=== PATIENT | female | born 1980 | race Caucasian/White ===

== ENCOUNTER → 2017-02-16 | Outpatient (CLI) | payer BC ==
[~2017-02-16] MED LIST: APNO TOP; MOTRIN800 MG PO; PERCOCET 5-3251 EACH PO; PRENATAL 1+1)(P1 TAB PO; TUMS200 MG PO
== END | disposition disaster alternative care site (69) ==
LOC: GLAB 07:55
DX: Z36 Encounter for antenatal screening of mother (principal)

== ENCOUNTER 2017-04-30 07:13 | Outpatient (CLI) | payer BC ==
[~2017-04-30] VITALS: Ht 160 cm; Wt 101.4 kg
[~2017-04-30 07:13] MED LIST changes: -APNO TOP; -MOTRIN800 MG PO; -PERCOCET 5-3251 EACH PO
[2017-04-30 07:57] LABS: BASOPHIL # 0.1 K/uL (0.0-0.2); BASOPHIL % 0.5 %; EOSINOPHIL # 0.2 K/uL (0.0-0.5); EOSINOPHIL % 1.7 %; HEMATOCRIT 35.5 % (33.0-46.0); HEMOGLOBIN 12.1 g/dL (11.0-15.0); IMMATURE GRANULOCYTE # 0.1 K/uL (0.0-0.3); IMMATURE GRANULOCYTE % 1.2 %; LYMPHOCYTE # 3.2 K/uL (0.8-4.0); LYMPHOCYTE % 30.8 %; MCH 30.7 pg (27.0-34.0); MCHC 34.1 gm/dL (32.0-36.5); MCV 90.1 fl (83.0-98.0); MONOCYTE # 1.1 K/uL (0.0-1.0); MONOCYTE % 10.6 %; MPV 10.3 fl (9.4-12.4); NEUTROPHIL # (ANC) 5.8 K/uL (1.8-7.8); NEUTROPHIL % 55.2 %; NRBC % 0 /100WBC (0-0.00); PLATELET COUNT 323 K/uL (150-450); RBC 3.94 M/uL (3.50-5.50); RDW-CV 12.7 % (11.9-14.6); WBC 10.5 K/uL (4.0-11.0)
--- NOTE | 2017-04-30 17:15 | NUR ---
Last VS: T:98.4 P:100 R: 18 BP: 120/70 Pain ratin. Last pain med: None given Medicated at: Effective: FHT: 125 Dilatation: 3 Effacement %: 80 Station: -2/BOLLATABLE Significant event: .PGE2 GEL X1, PITOCIN STARTED AT 1215. RUNNING AT 19MU/MIN. PT HAS USED BIRTHING BALL AND PEANUT BALL. INITIAL VE 2/80/-2 ANTERIOR
== END 2017-04-30 20:15 | disposition disaster alternative care site (69) ==
LOC: GOBM 07:13 → GOBS 07:13 → GOBM 20:15
PROVIDERS: Obstetrics & Gynecology
DX: O09.523 Supervision of elderly multigravida, third trimester (principal); Z3A.39 39 weeks gestation of pregnancy; O26.23 Pregnancy care for patient with recurrent pregnancy loss, third trimester
CPT/HCPCS: G0463; J2001; J2590; J7120

== ENCOUNTER 2017-05-03 07:46 | Inpatient (IN) | payer BC ==
[~2017-05-03] VITALS: Ht 160 cm; Wt 101.8 kg
--- NOTE | ~2017-05-03 | DS ---
PATIENT'S NAME: ARYAN VERDIN [facility] AGE: 36 Y [address] ROOM: [address] [address] LOCATION: [facility] ADMIT DATE: 05/03/2017 Discharge Summary DISCHARGE DATE: 05/05/2017 FAMILY PHYSICIAN: PHYSICIAN, NO ATTENDING PHYSICIAN: Alli Gamble FINAL DIAGNOSES: 1. Term intrauterine /delivered. 2. Advanced maternal age. 3. Failed induction x2. PROCEDURES PERFORMED: On 05/03/2017, induction of labor, low transverse section. LABORATORY STUDIES: The patient's discharge hemoglobin and hematocrit were 10.3 and 30.3 respectively. White blood cell count was 12.2. umbilical, arterial cord blood gases revealed a pH of 7.29 and a base deficit of 3. HOSPITAL COURSE: The patient was admitted to [facility] on 05/03/2017. She would undergo a trial of labor and fail to progress beyond 3 cm dilation. As such, she desired to abandon the trial of labor and proceed to a section. She was taken to the operating room. She would deliver a viable 8 pounds 7 ounce female under epidural anesthesia. She had an unremarkable postoperative course. Pain was initially managed with Toradol and Percocet, later changed over to oral pain medications consisting of Motrin and Percocet. Underwood was discontinued on postoperative day #1 without incident and initially kept n.p.o., quickly advanced to clear liquid on a regular diet on 05/05/2017 (postoperative day #2). The patient is having normal urine and bowel function and will allow good pain control and subsequently discharged in good condition. DISCHARGE MEDICATIONS: She is to resume her outpatient medications. In addition, she was given a prescription for Motrin and Percocet. DISCHARGE INSTRUCTIONS: She is to return to see Dr. Gamble in 2 weeks. Otherwise, discharge instructions were reviewed. MD SALOME ESPINOZA/alfred [facility] 36 [facility] [address] ROOM: [address] [address] LOCATION: [facility] ADMIT DATE: 05/03/2017 Discharge Summary DISCHARGE DATE: 05/05/2017 FAMILY PHYSICIAN: BIA YOUNG ATTENDING PHYSICIAN: Alli Gamble /[id number] d: 05/25/17 1033 t: 05/27/17 1049, DISCHARGE SUMMARY
--- NOTE | ~2017-05-03 | HP ---
[facility] AGE[facility] 36 Y [address] ROOM: [place] [address] LOCATION: [facility] ADMIT DATE: 05/03/2017 History & Physical DISCHARGE DATE: FAMILY PHYSICIAN: BIA YOUNG ATTENDING PHYSICIAN: Alli Gamble DATE OF SERVICE: 05/03/2017 HISTORY OF PRESENT ILLNESS: Karen Singh is a 36-year-old white female, 7, para 2, at term. She was induced for advanced maternal age. She has now failed her second induction. She does not desire to proceed with a third induction. She wishes to proceed to a delivery. PAST MEDICAL HISTORY: Please see record. FAMILY HISTORY: Please see record. SOCIAL HISTORY: Please see record. PHYSICAL EXAMINATION: GENERAL: Well-developed, well-nourished white female, appears her stated age. HEENT: Grossly normal. LUNGS: Normal. HEART: Normal. IMPRESSION: A 36-year-old female with advanced maternal age, failed her second induction, desires to proceed to a delivery. PLAN: Proceed to primary low-transverse section. The patient understands the indications, procedures, risks, and alternatives. Also understands the risks to include bleeding that may require transfusions, infections that may require IV antibiotics, prolonged hospitalization, possible damage to the internal organs that may require additional surgical correction, and the risks of anesthesia. All questions were answered to the patient's satisfaction and informed consent was obtained. PATIENT'S NAME: URIEL SINGHELIA [facility] AGE: 36 Y [address] ROOM: [place] [address] LOCATION: [facility] ADMIT DATE: 05/03/2017 History & Physical DISCHARGE DATE: FAMILY PHYSICIAN: BIA YOUNG ATTENDING PHYSICIAN: Alli Gamble MD DHW/alfred /[id number] D: [id number] T: [id number] HISTORY & PHYSICAL
--- NOTE | ~2017-05-03 | OR ---
PATIENT'S NAME: KAREN SINGH [facility] AGE: 36 Y [address] ROOM: [address] [address] LOCATION: [facility] ADMIT DATE: 05/03/2017 OR/Procedure Report DISCHARGE DATE: FAMILY PHYSICIAN: PHYSICIAN, NO ATTENDING PHYSICIAN: Arnie Gamble SURGEON: Arnie Gamble MD WHITE METAL CORROSION PROOFER: Flaca Maldonado Dr.'s assistance was required due to the complexity of the case as well as in compliance with [facility] guidelines. DATE OF PROCEDURE: 05/03/2017 PREOPERATIVE DIAGNOSES: Term intrauterine , advanced maternal age, failed induction x2. POSTOPERATIVE DIAGNOSES: Term intrauterine , advanced maternal age, failed induction x2. PROCEDURE: Primary low-transverse section. ANESTHESIA: Epidural. ESTIMATED BLOOD LOSS: 500 mL. CLINICAL INDICATION: Karen Singh is a 36-year-old female, who underwent an induction of labor #2 secondary to advanced maternal age. She was failed to be induced. She desired to be delivered via section. FINDINGS: Delivery of viable 8 pounds and 7 ounces female infant, score 8 at 1 minute and 9 at 5 minutes. umbilical arterial cord blood gas is pending at the time of dictation. TECHNICAL PROCEDURE: The patient was taken to the operating room, labor epidural was sufficient for a delivery, placed in a supine position with a right hip roll, prepped and draped in the usual fashion. Pfannenstiel skin incision was made with a scalpel. Subcutaneous tissue was dissected sharply and fascial incision was performed sharply. Linea alba dissected free of rectus muscles using a combination of sharp and blunt dissection. Rectus muscle and peritoneum were incised sharply in the midline. Bladder flap created. Myometrium incised with a scalpel. Endometrial cavity was entered bluntly. At this point in time, there was a rapid and easy delivery of a viable 8 pounds and 7 ounces female in a vertex presentation. The umbilical cord was doubly clamped, the intervening segment was cut, infant handed off to the [facility]. umbilical arterial cord blood and venous cord blood were obtained for blood gas analysis and routine [facility] AGE[facility] 36 Y [address] ROOM: [address] [address] LOCATION: [facility] ADMIT DATE: 05/03/2017 OR/Procedure Report DISCHARGE DATE: FAMILY PHYSICIAN: PHYSICIAN, NO ATTENDING PHYSICIAN: Arnie Gmable respectively. Placenta delivered spontaneously intact with 3 vessels. Exploration of the uterine cavity noted no residual, placental, or amniotic membranes. Uterine incision was closed with a running continually locking stitch of 0 chromic suture followed by a second imbricating layer consisting of running continuous stitch of 0 chromic suture. Good hemostasis was obtained. Bladder flap was closed with running continuous stitch of 2-0 Vicryl suture. Abdomen was inspected. Any blood or blood clots were retrieved. Tubes and ovaries were normal bilaterally. Abdominal peritoneum was closed with running continuous stitch of 2-0 Vicryl suture. Fascial incision was closed with 2 running continuous stitches of 0 Vicryl suture tied in the midline. Subcutaneous tissue was reapproximated using running continuous stitch of 2-0 Vicryl suture. The skin was closed with a running continuous subcuticular stitch of 4-0 Vicryl suture. Sponge, needle, and instrument counts were correct. The patient tolerated the procedure well and was taken to the recovery room in good condition. ARNIE GAMBLE MD DHW/modl /[id number] d: 05/04/17 0049 t: 05/04/17 0824, OPERATIVE SUMMARY
[2017-05-03 09:16] LABS: BASOPHIL # 0.1 K/uL (0.0-0.2); BASOPHIL % 0.5 %; EOSINOPHIL # 0.2 K/uL (0.0-0.5); EOSINOPHIL % 1.6 %; HEMOGLOBIN 11.7 g/dL (11.0-15.0); IMMATURE GRANULOCYTE # 0.1 K/uL (0.0-0.3); IMMATURE GRANULOCYTE % 1.1 %; MCH 30.8 pg (27.0-34.0); MCHC 33.4 gm/dL (32.0-36.5); MCV 92.1 fl (83.0-98.0); MONOCYTE # 0.9 K/uL (0.0-1.0); MONOCYTE % 9.7 %; MPV 10.7 fl (9.4-12.4); NEUTROPHIL # (ANC) 5.1 K/uL (1.8-7.8); NEUTROPHIL % 55.1 %; NRBC % 0 /100WBC (0-0.00); PLATELET COUNT 303 K/uL (150-450); WBC 9.2 K/uL (4.0-11.0)
[2017-05-03 19:52] LABS: BICARBONATE 24.4 mmol/L (18.0-23.0); PCO2 51 mmHg (35-45); PO2 18 mmHg (80-90)
--- NOTE | 2017-05-04 05:13 | NUR ---
VSS. MICROFOAM DRESSING C/D/I. TORRES CATHETER TO BE DC'D POST OP DAY 1. DRAINS CLEAR YELLOW URINE. PATIENT STILL ON CLEAR LIQUID DIET. RATES PAIN 2/10. PERCOCET DUE AT 0745. 3RD DOSE OF TORADOL DUE AT 0700. FUNDUS FIRM, -1, SMALL FLOW.
[2017-05-04 08:54] LABS: BASOPHIL % 0.2 %; EOSINOPHIL % 0.1 %; HEMATOCRIT 30.3 % (33.0-46.0); HEMOGLOBIN 10.3 g/dL (11.0-15.0); IMMATURE GRANULOCYTE # 0.1 K/uL (0.0-0.3); IMMATURE GRANULOCYTE % 0.4 %; LYMPHOCYTE # 2.3 K/uL (0.8-4.0); LYMPHOCYTE % 18.9 %; MCV 91.3 fl (83.0-98.0); MONOCYTE # 0.9 K/uL (0.0-1.0); MONOCYTE % 7.5 %; MPV 10.2 fl (9.4-12.4); NEUTROPHIL # (ANC) 8.9 K/uL (1.8-7.8); NEUTROPHIL % 72.9 %; NRBC % 0 /100WBC (0-0.00); PLATELET COUNT 249 K/uL (150-450); RBC 3.32 M/uL (3.50-5.50); RDW-CV 13.1 % (11.9-14.6); WBC 12.2 K/uL (4.0-11.0)
--- NOTE | 2017-05-04 16:56 | NUR ---
Last VS: T:98.3 P:76 R: 16 BP: 101/52 Pain ratin Last pain med: Percocet Medicated at: 1600 Effective: Yes Breasts: SOFT Nipples: INTACT Fundus: FIRM, EVEN, MIDLINE Lochia: SMALL, RUBRA INCISION: CLEAN DRY INTACT APPROXIMATED, STERI STRIP/SUTURE Voiding well: YES Significant event: SHOWERED AND REMOVED DRESSING, NEEDS TO WALK IN HALLS. LAST DOSE OF TORADOL GIVEN @ 1400
--- NOTE | 2017-05-05 05:35 | NUR ---
VSS. FUNDUS FIRM, -1, SMALL FLOW. STERI STRIPS TO INCISION, C/D/I. PT ENCOURAGED TO WALK THE HALLS, COMPLAINING OF GAS AT TIMES. LAST HAD PERCOCET AT 0515. WOULD LIKE TO GO HOME THIS EVENING.
[2017-05-05] MEDS ORDERED: APNO TOP (13:08)
[2017-05-05] MEDS ORDERED: MOTRIN800 MG PO (13:08)
[2017-05-05] MEDS ORDERED: PERCOCET 5-3251 EACH PO (13:09)
== END 2017-05-05 17:05 | disposition disaster alternative care site (69) | DRG 766 ==
LOC: GOBM 07:46 → GOBS 07:46 → GOBM 07:47 → GOBS 15:36
PROVIDERS: ADMIT Obstetrics & Gynecology
PROC: 10D00Z1 Extraction of Products of Conception, Low, Open Approach (ICD-10-PCS; principal; 2017-05-03)
DX: O61.0 Failed medical induction of labor (principal); O09.523 Supervision of elderly multigravida, third trimester; Z3A.00 Weeks of gestation of pregnancy not specified; Z37.0 Single live birth
CPT/HCPCS: J0690; J1885; J2001; J2270; J2590; J3010; J7120